=== PATIENT | female | born 1985 | race Caucasian/White ===

== ENCOUNTER 2019-03-27 18:13 | Emergency (ER) | payer OTHER ==
[~2019-03-27] VITALS: Ht 162.6 cm; Wt 43.7 kg
[2019-03-27 19:04] VITALS: Ht 162.6 cm; Wt 43.7 kg
[2019-03-27 23:32] VITALS: BP 110/72
== END 2019-03-27 23:32 | disposition home or self-care (01) ==
LOC: ED 18:13
DX: J11.1 Influenza due to unidentified influenza virus with other respiratory manifestations (principal); F17.210 Nicotine dependence, cigarettes, uncomplicated; E03.9 Hypothyroidism, unspecified
CPT/HCPCS: 87804